=== PATIENT | male | born 1960 | race Caucasian/White ===

== ENCOUNTER 2019-03-23 16:22 | Inpatient (IN) | payer OTHER ==
[~2019-03-23] VITALS: Ht 162.6 cm; Wt 93.4 kg
[2019-03-23] MEDS ORDERED: RA M1SUB SL (16:45)
[2019-03-23 17:28] LABS: HEMATOCRIT 46.7 % (42.0-52.0); HEMOGLOBIN 15.5 g/dl (13.5-17.5); MEAN CORPUSCULAR HGB CONC 33.2 g/dl (32.0-36.5); MEAN CORPUSCULAR VOLUME 90.3 fl (80.0-96.0); PLATELET COUNT, AUTOMATED 302 10^3/uL (150-450); RED BLOOD COUNT 5.17 10^6/uL (4.30-6.10); WHITE BLOOD COUNT 9.9 10^3/uL (4.0-10.0)
[2019-03-23 17:49] LABS: AMPHETAMINES LEVEL URINE NEGATIVE (NEGATIVE); BARBITURATES URINE NEGATIVE (NEGATIVE); BENZODIAZEPINES URINE NEGATIVE (NEGATIVE); CANNABINOIDS URINE NEGATIVE (NEGATIVE); COCAINE METABOLITE URINE NEGATIVE (NEGATIVE); METHADONE URINE NEGATIVE (NEGATIVE); OPIATES URINE NEGATIVE (NEGATIVE); PHENCYCLIDINE URINE NEGATIVE (NEGATIVE)
[2019-03-23 18:05] LABS: ACETAMINOPHEN LEVEL < 2.0 UG/ML (10.0-30.0); ALBUMIN 3.9 GM/DL (3.2-5.2); ALT/SGPT 25 U/L (12-78); BILIRUBIN,DIRECT 0.2 MG/DL (0.0-0.2); BILIRUBIN,TOTAL 0.5 MG/DL (0.2-1.0); BLOOD UREA NITROGEN 18 MG/DL (7-18); CALCIUM LEVEL 9.2 MG/DL (8.5-10.1); CARBON DIOXIDE LEVEL 26 MEQ/L (21-32); CHLORIDE LEVEL 107 MEQ/L (98-107); CREATININE FOR GFR 1.11 MG/DL (0.70-1.30); ETHYL ALCOHOL (ETHANOL) < 0.003 % (0.000-0.010); GLOMERULAR FILTRATION RATE > 60.0 (>56); GLUCOSE, FASTING 106 MG/DL (70-100); POTASSIUM SERUM 4.1 MEQ/L (3.5-5.1); SALICYLATE LEVEL < 1.7 MG/DL (5.0-30.0); SODIUM LEVEL 143 MEQ/L (136-145); TOTAL PROTEIN 7.4 GM/DL (6.4-8.2)
[2019-03-23] MEDS ORDERED: chlorproMAZINE 25 MG TAB (Q0161) PO ONE (22:15)
[2019-03-24] MEDS ORDERED: MELA5TAB29 SL (00:32)
[2019-03-24] MEDS ORDERED: DIPH50CA PO (00:32)
[2019-03-24] MEDS ORDERED: ACETAMINOPHEN TAB 650MG DOSE (2X325MG) PO PRN (13:45)
[2019-03-24] MEDS ORDERED: MAALOX 30 ML SUSP *UDC PO PRN (13:45)
[2019-03-24] MEDS ORDERED: MOM 30ML SUSPENSION UDC PO PRN (13:45)
[2019-03-24 15:11] VITALS: BP 150/80
[2019-03-24] MEDS: OLANZapine ORAL DISINTEGRATING TAB 5MG PO PRN (21:03)
[2019-03-25 06:21] VITALS: BP 144/78
--- NOTE | 2019-03-25 10:18 | MHHPEPDOC ---
General Date Of Admission: Mar 24, 2019 Legal Status: 9.39 Chief Complaint "I've been so stressed lately by the feeling people are always watching me." History of Present Illness HISTORY OF THE PRESENT ILLNESS: Patient is a 58 -year-old , male, with no previous psych history who was brought to ED by police under 9.41 after per police, they were by [facility] that pt had been calling hospital and making suicidal threats of walking into traffic or hitting himself in the head with a bat and was making paranoid statements. Once in [facility] ED pt stated he had been having suicidal thoughts for the past 3-4 days and that he didn't want to be alive anymore per ED. Per ED, pt endorsed increased anxiety and depression over the past 3months after people started accusing him of stealing at work and feeling like the managers at [facility] [employer] were watching him. Pt stated in the ED that he hadn't stolen anything and that no one had actually accused him but feels like people are saying things behind his back. Pt also reported that his father last year and that after he passed strange things had been happening in the home such as the TV turning on by itself. Pt also endorse occasional AH in the ED with the most recent time occurring 3wks ago when he heard people talking in another room in his home but no one else was at home at the time. Psychiatric Review of Systems Depression (2 or more weeks): depressed mood, difficulty concentrating, suicidal thoughts Reba (4 or more days of): denies Psychosis: auditory hallucination, delusions, paranoia PTSD: denies Anxiety: situational anxiety, stressor related anxiety Anxiety/ 6 months or more of: restlessness, keyed up, difficulty concentrating Past Psychiatric History Previous Psychiatric Diagnosis: denies Previous Psychiatric Admissions: denies Suicide Attempts: denies Psychiatric Follow-up: denies Psychiatric medications: melatonin 5mg qhs, benadryl 50mg qhs prn Past Medical History Medical Problems asthma Head Injury: No Seizures: No Hospitalizations: No Surgeries: No Family Medical/Psychiatric HX Medical Problems noncontributory Psychiatric Disorders: Yes (brother - anxiety, depression, paranoia) Addiction: No Suicide Attemps/Completions: No Addiction History denies, other (utox negative) Social History Childhood: born and raised in [place], [place]. 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 Social Support: family Legal: denies Marital: single Mental Status Examination General Appearance: well groomed, ds/not appear stated age (older), hospital s cubs/clothing Build: overweight Demeanor: average, other (pleasant) Eye Contact: poor Activity: slowed Behavior: cooperative Speech: clear, spontaneous, low in volume Mood: depressed, anxious Mood "overwhelmed by the stress" Affect: constricted, flat, congruent, anxious Thought Process: logical/linear, depressed, slow, intact Thought Content (Delusions): none reported, denies SI, HI, AVH, paranoia (people watching him and talking about him, accusing him of things (steeling)) Thought Content (Other): preoccupied, obsessional, ideas of reference, internal-stimuli, appears paranoid Thought Content (Aggressive): none reported Perception (Hallucinations): auditory Perception (Other): none reported Cognition (Impairment of): none reported Cognition(Intelligence Est.): average Oriented: Awake, Alert, Oriented times three Insight: poor Judgment: Poor Psychosis: Psychotic Perceptions Diagnoses Depressive d/o vs. Anxiety d/o unspecified with psychotic symptoms R/O MDD with psychotic features R/O Avoidant Personality D/O A-FIB/CHADSVASC A-FIB History Current/History of A-Fib/PAF?: No Assessment Pt seen and states he's been having a lot of anxiety and paranoia and having thoughts of harming himself, wanting to run in front of cars, 3-4 days ago. States he's been reading the bible and praying this morning which has been helpful. States he feels like he's always being watch even by his family and at work, or even waking down the street like "everyone's staring at me and I start constantly looking around and my stress builds up and my anxiety get's so overwhelming." Endorse symptoms of panic attacks and "wanting to crawl up like a ball until it goes away." Endorses insomnia secondary to anxiety. Discussed medication for depression and paranoia and is agreeable to starting celexa for mood and risperidone for paranoia after risks/benefits discussed. Currently denies SI/HI, hallucinations, delusions. Feels safe here. Initial Treatment Plan 1. Patient was admitted on a 9.39 status. 2. Complete history was obtained. 3. With patients permission, family will be contacted and database will be expanded. 4. Patients medication regimen will be reviewed and changed accordingly. 5. Patient will be provided with protected environment. 6. Patient will be treated with individual, group, and milieu therapies. 7. Patient will receive supportive psych-education. 8. Discharge planning will commence immediately. 9. Outpatient follow-up treatment will be strongly recommended. 10. The initial treatment plan will focus initially on: * Depression. * Risk for suicide. 11. celexa 10mg qhs, risperidone 0.5mg qhs, vistaril 25mg q6hr prn anxiety ESTIMATED LENGTH OF STAY: 7-10 DAYS. TIME SPENT COUNSELING AND COORDINATING INITIAL CARE: 60 minutes. Vital Signs Vital Signs Date Time Temp Pulse Resp B/P (MAP) Pulse Ox O2 Delivery O2 Flow Rate FiO2 03/25/19 08:16 Room Air 03/25/19 06:21 98.9 69 16 144/78 (100) 03/24/19 15:05 99 Medications Scheduled PRN Diphenhydramine HCl (Diphenhydramine HCl) 50 Mg Capsule, 50 MG PO QHS PRN for SLEEP, (Reported) Melatonin (Melatonin) 5 Mg Tab.subl, 5 MG SL QHS PRN for SLEEP, (Reported) Allergies Coded Allergies: No Known Allergies (Unverified , 03/23/19) IVONE MAI DO Mar 25, 2019 10:18
[2019-03-25 17:35] VITALS: BP 160/81
[2019-03-25] MEDS: OLANZapine ORAL DISINTEGRATING TAB 5MG PO PRN (20:27)
[2019-03-25] MEDS: traZODone 50 MG TAB PO PRN (20:52)
[2019-03-26 06:04] VITALS: BP 140/82
[2019-03-26] MEDS: OLANZapine ORAL DISINTEGRATING TAB 5MG PO PRN (08:21)
--- NOTE | 2019-03-26 09:05 | MHIPNPDOC ---
[facility] Progress Note Progress Note DATE OF SERVICE: 03/26/19 HISTORY: Patient is a 58 -year-old , male, with no previous psych history who was brought to ED by police under 9.41 after per police, they were by [facility] that pt had been calling hospital and making suicidal threats of walking into traffic or hitting himself in the head with a bat and was making paranoid statements. Once in [facility] ED pt stated he had been having suicidal thoughts for the past 3-4 days and that he didn't want to be alive anymore per ED. Per ED, pt endorsed increased anxiety and depression over the past 3months after people started accusing him of stealing at work and feeling like the managers at [facility] were watching him. Pt stated in the ED that he hadn't stolen anything and that no one had actually accused him but feels like people are saying things behind his back. Pt also reported that his father last year and that after he passed strange things had been happening in the home such as the TV turning on by itself. Pt also endorse occasional AH in the ED with the most recent time occurring 3wks ago when he heard people talking in another room in his home but no one else was at home at the time. Pt seen and states he's been having a lot of anxiety and paranoia and having thoughts of harming himself, wanting to run in front of cars, 3-4 days ago. States he's been reading the bible and praying this morning which has been helpful. States he feels like he's always being watch even by his family and at work, or even waking down the street like "everyone's staring at me and I start constantly looking around and my stress builds up and my anxiety get's so overwhelming." Endorse symptoms of panic attacks and "wanting to crawl up like a ball until it goes away." Endorses insomnia secondary to anxiety. Discussed medication for depression and paranoia and is agreeable to starting celexa for mood and risperidone for paranoia after risks/benefits discussed. Currently denies SI/HI, hallucinations, delusions. Feels safe here. VITAL SIGNS: See below. NEW TEST RESULTS:See below. CURRENT MEDICATIONS: See below. MENTAL STATUS EXAMINATION: General Appearance: well groomed, ds/not appear stated age (older), hospital scrubs/clothing Build: overweight Demeanor: average, other (pleasant) Eye Contact: poor Activity: slowed Behavior: cooperative Speech: clear, spontaneous, low in volume Mood: depressed, very anxious Mood "not great... I fear I'll be by the end of today" Affect: constricted, flat, congruent, very anxious Thought Process: disorganized, depressed, slow, intact Thought Content (Delusions): none reported, denies SI, HI, AVH, paranoia (people watching him and talking about him, accusing him of things (steeling), fear of not being alive by the end of the day but denies he knows what will happen to him, denies he'll do anything to harm himself) Thought Content (Other): preoccupied, obsessional, ideas of reference, internal-stimuli, appears paranoid Thought Content (Aggressive): none reported Perception (Hallucinations): auditory Perception (Other): none reported Cognition (Impairment of): none reported Cognition(Intelligence Est.): average Oriented: Awake, Alert, Oriented times three Insight: poor Judgment: Poor Psychosis: Psychotic Perceptions DIAGNOSES: Depressive d/o vs. Anxiety d/o unspecified with psychotic symptoms R/O MDD with psychotic features R/O Avoidant Personality D/O ASSESSMENT:Pt seen and states he's "not feeling great" and fears "I won't be alive by the end of this day", denies he's going to harm himself, "just go peaceful and not struggle" due to overwhelming anxiety. States anxiety is regarding fear of not being alive by the end of today but denies he know's what going to happen to him. "There's no malice or intention toward anyone here." He seems very anxious, paranoid, and disorganized, having a very hard time focusing on anything but his thoughts, fears, paranoia. States he slept well last night. Feels he is tolerating his medications and and that they help for a little while then wear off and severe anxiety returns. He is attending groups and finding them helpful. He denies SI/HI. MANAGEMENT PLAN: continue plan, change risperidone 1mg bid. celexa 10mg qhs risperidone 0.5mg qhs vistaril 25mg q6hr prn anxiety TIME SPENT: 30 minutes. Vital Signs Vital Signs Date Time Temp Pulse Resp B/P (MAP) Pulse Ox O2 Delivery O2 Flow Rate FiO2 03/26/19 06:04 98.4 65 16 140/82 (101) Room Air 03/24/19 15:05 99 Current Medications Current Medications Medications (Trade) Dose Ordered Sig/Liu Route PRN Reason Start Time Stop Time Status Last Admin Dose Admin Acetaminophen (Tylenol Tab) 650 mg Q6HP PRN PO HEADACHE or DISCOMFORT 03/24/19 13:45 Al Hydrox/Mg Hydrox/Simethicone (Mylanta) 30 ml Q4HP PRN PO HEARTBURN/INDIGESTION 03/24/19 13:45 Home Med (Med Rec Complete!) ASDIRECTED XX 03/24/19 00:45 03/24/19 00:36 DC Magnesium Hydroxide (Milk Of Magnesia) 30 ml DAILYPRN PRN PO CONSTIPATION 03/24/19 13:45 Olanzapine (ZyPREXA ZYDIS) 10 mg Q4HP PRN PO ANXIETY/AGITATION 03/24/19 20:30 03/26/19 08:21 Trazodone HCl (Desyrel) 50 mg QHSP PRN PO INSOMNIA 03/24/19 13:45 03/25/19 20:52 Allergies Coded Allergies: No Known Allergies (Unverified , 03/23/19) IVONE MAI DO Mar 26, 2019 9:05 am
[2019-03-26] MEDS ORDERED: risperiDONE 1 MG TAB PO ONE (10:00)
[2019-03-26 18:12] VITALS: BP 185/88
[2019-03-26] MEDS: risperiDONE 1 MG TAB PO SCH (20:25)
[2019-03-26] MEDS: CitaloPRAM (CeleXA) 10 MG TABLET PO SCH (20:25)
[2019-03-26] MEDS: traZODone 50 MG TAB PO PRN (20:46)
[2019-03-27 06:09] VITALS: BP 142/76
--- NOTE | 2019-03-27 09:34 | MHIPNPDOC ---
[facility] Progress Note Progress Note DATE OF SERVICE: 03/27/19 HISTORY:Patient is a 58 -year-old , male, with no previous psych history who was brought to ED by police under 9.41 after per police, they were by [facility] that pt had been calling hospital and making suicidal threats of walking into traffic or hitting himself in the head with a bat and was making paranoid statements. Once in [facility] ED pt stated he had been having suicidal thoughts for the past 3-4 days and that he didn't want to be alive anymore per ED. Per ED, pt endorsed increased anxiety and depression over the past 3months after people started accusing him of stealing at work and feeling like the managers at [facility] were watching him. Pt stated in the ED that he hadn't stolen anything and that no one had actually accused him but feels like people are saying things behind his back. Pt also reported that his father last year and that after he passed strange things had been happening in the home such as the TV turning on by itself. Pt also endorse occasional AH in the ED with the most recent time occurring 3wks ago when he heard people talking in another room in his home but no one else was at home at the time. Pt seen and states he's been having a lot of anxiety and paranoia and having thoughts of harming himself, wanting to run in front of cars, 3-4 days ago. States he's been reading the bible and praying this morning which has been helpful. States he feels like he's always being watch even by his family and at work, or even waking down the street like "everyone's staring at me and I start constantly looking around and my stress builds up and my anxiety get's so overwhelming." Endorse symptoms of panic attacks and "wanting to crawl up like a ball until it goes away." Endorses insomnia secondary to anxiety. Discussed medication for depression and paranoia and is agreeable to starting celexa for mood and risperidone for paranoia after risks/benefits discussed. Currently denies SI/HI, hallucinations, delusions. Feels safe here. VITAL SIGNS: See below. NEW TEST RESULTS:See below. CURRENT MEDICATIONS: See below. MENTAL STATUS EXAMINATION: General Appearance: well groomed, ds/not appear stated age (older), hospital scrubs/clothing Build: overweight Demeanor: average, other (pleasant) Eye Contact: poor Activity: slowed Behavior: cooperative Speech: clear, spontaneous, low in volume Mood: depressed, anxious Mood "better" Affect: constricted, flat, congruent, very anxious Thought Process: disorganized, depressed, slow, intact Thought Content (Delusions): none reported, denies SI, HI, AVH, endorses paranoia (people watching him and talking about him, accusing him of things (steeling), fear of not being alive by the end of the day but denies he knows what will happen to him, denies he'll do anything to harm himself) Thought Content (Other): preoccupied, obsessional, ideas of reference, improving internal-stimuli, appears paranoid Thought Content (Aggressive): none reported Perception (Hallucinations): improving auditory Perception (Other): none reported Cognition (Impairment of): none reported Cognition(Intelligence Est.): average Oriented: Awake, Alert, Oriented times three Insight: poor Judgment: Poor Psychosis: Psychotic Perceptions DIAGNOSES: Depressive d/o vs. Anxiety d/o unspecified with psychotic symptoms R/O MDD with psychotic features R/O Avoidant Personality D/O ASSESSMENT:Pt seen and states he's feels "better" as ther medication increase in risperidone is helpful. Countinues to endorse paranoia and anxiety but less than yesterday. Admits he does yet feel quite safe here due to anxiety/fear something bad may happen to him but doesn't know what. Denies he believes he'll be by the end of today like yesterday. He seems less anxious, paranoid, and disorganized today and his focus/concentration is improved. States he slept ok last night but was awoken by roommate walking in and out of room. Feels he is tolerating his medications and and that they are starting to be helpful and working for longer periods of time. He is attending groups and finding them helpful, plans to attend 3 today as attended 2 yesterday. He denies SI/HI. MANAGEMENT PLAN: continue plan celexa 10mg qhs risperidone 1mg bid vistaril 25mg q6hr prn anxiety TIME SPENT: 30 minutes. Vital Signs Vital Signs Date Time Temp Pulse Resp B/P (MAP) Pulse Ox O2 Delivery O2 Flow Rate FiO2 03/27/19 06:09 97.4 60 16 142/76 (98) 03/26/19 06:04 Room Air 03/24/19 15:05 99 Current Medications Current Medications Medications (Trade) Dose Ordered Sig/Liu Route PRN Reason Start Time Stop Time Status Last Admin Dose Admin Acetaminophen (Tylenol Tab) 650 mg Q6HP PRN PO HEADACHE or DISCOMFORT 03/24/19 13:45 Al Hydrox/Mg Hydrox/Simethicone (Mylanta) 30 ml Q4HP PRN PO HEARTBURN/INDIGESTION 03/24/19 13:45 Citalopram Hydrobromide (CeleXA) 10 mg QHS PO 03/26/19 21:00 03/26/19 20:25 Home Med (Med Rec Complete!) ASDIRECTED XX 03/24/19 00:45 03/24/19 00:36 DC Magnesium Hydroxide (Milk Of Magnesia) 30 ml DAILYPRN PRN PO CONSTIPATION 03/24/19 13:45 Olanzapine (ZyPREXA ZYDIS) 10 mg Q4HP PRN PO ANXIETY/AGITATION 03/24/19 20:30 03/26/19 08:21 Risperidone (RisperDAL) 1 mg BID PO 03/26/19 21:00 03/26/19 20:25 Trazodone HCl (Desyrel) 50 mg QHSP PRN PO INSOMNIA 03/24/19 13:45 03/26/19 20:46 Allergies Coded Allergies: No Known Allergies (Unverified , 03/23/19) IVONE MAI DO Mar 27, 2019 9:34 am
[2019-03-27] MEDS: risperiDONE 1 MG TAB PO SCH ×2 (09:35→20:26)
[2019-03-27 18:00] VITALS: BP 140/77
[2019-03-27] MEDS: CitaloPRAM (CeleXA) 10 MG TABLET PO SCH (20:25)
[2019-03-27] MEDS: traZODone 50 MG TAB PO PRN (20:27)
[2019-03-28 05:57] VITALS: BP 142/72
[2019-03-28] MEDS: risperiDONE 1 MG TAB PO SCH (09:15)
--- NOTE | 2019-03-28 10:35 | MHIPNPDOC ---
[facility] Progress Note Progress Note DATE OF SERVICE: 03/28/19 HISTORY: Patient is a 58 -year-old , male, with no previous psych history who was brought to ED by police under 9.41 after per police, they were by [facility] that pt had been calling hospital and making suicidal threats of walking into traffic or hitting himself in the head with a bat and was making paranoid statements. Once in [facility] ED pt stated he had been having suicidal thoughts for the past 3-4 days and that he didn't want to be alive anymore per ED. Per ED, pt endorsed increased anxiety and depression over the past 3months after people started accusing him of stealing at work and feeling like the managers at [facility] were watching him. Pt stated in the ED that he hadn't stolen anything and that no one had actually accused him but feels like people are saying things behind his back. Pt also reported that his father last year and that after he passed strange things had been happening in the home such as the TV turning on by itself. Pt also endorse occasional AH in the ED with the most recent time occurring 3wks ago when he heard people talking in another room in his home but no one else was at home at the time. Pt seen and states he's been having a lot of anxiety and paranoia and having thoughts of harming himself, wanting to run in front of cars, 3-4 days ago. States he's been reading the bible and praying this morning which has been helpful. States he feels like he's always being watch even by his family and at work, or even waking down the street like "everyone's staring at me and I start constantly looking around and my stress builds up and my anxiety get's so overwhelming." Endorse symptoms of panic attacks and "wanting to crawl up like a ball until it goes away." Endorses insomnia secondary to anxiety. Discussed medication for depression and paranoia and is agreeable to starting celexa for mood and risperidone for paranoia after risks/benefits discussed. Currently denies SI/HI, hallucinations, delusions. Feels safe here. VITAL SIGNS: See below. NEW TEST RESULTS:See below. CURRENT MEDICATIONS: See below. MENTAL STATUS EXAMINATION: General Appearance: well groomed, ds/not appear stated age (older), hospital scrubs/clothing Build: overweight Demeanor: average, other (pleasant) Eye Contact: poor Activity: slowed Behavior: cooperative Speech: clear, spontaneous, low in volume Mood: depressed, anxious Mood "better" Affect: constricted, flat, congruent, very anxious Thought Process: disorganized, depressed, slow, intact Thought Content (Delusions): none reported, denies SI, HI, AVH, endorses paranoia (people watching him and talking about him, accusing him of things (steeling), fear of not being alive by the end of the day but denies he knows what will happen to him, denies he'll do anything to harm himself) Thought Content (Other): preoccupied, obsessional, ideas of reference, improving internal-stimuli, appears paranoid Thought Content (Aggressive): none reported Perception (Hallucinations): improving auditory Perception (Other): none reported Cognition (Impairment of): none reported Cognition(Intelligence Est.): average Oriented: Awake, Alert, Oriented times three Insight: poor Judgment: Poor Psychosis: Psychotic Perceptions DIAGNOSES: Depressive d/o vs. Anxiety d/o unspecified with psychotic symptoms R/O MDD with psychotic features R/O Avoidant Personality D/O ASSESSMENT:Pt seen and states he's feels "a bit better" although still struggles with anxiety, fear, paranoia that was increased last night due to his roommate walking in and out of their room repeatedly preventing the pt from sleeping but did improve when his room was changed to help him sleep better. States he felt unsafe due to his roommate actions last night but that it's better now that he's in a new room. States that risperidone is helping but due to continued moderate fear/anxiety/paranoia will increase nightly dose to 2mg which pt is agreeable to. Continues to endorse depressed mood mostly due to his anxiety and paranoia. Denies SI/HI. Admist that he is a loner as people make him anxious b/c he fears they will justice court judge him negatively even though he would like friends. Reviewed with pt what avoidant personality d/o is and that is is something that improves with therapy for him to realize people are more often thinking of themselves rather than him and what he says or does. Feels he is tolerating his medications and and that they are starting to be helpful and working for longer periods of time. He is attending groups and finding them helpful, plans to attend as many as he can today. He denies SI/HI. MANAGEMENT PLAN: continue plan, increase nightly risperidone celexa 10mg qhs risperidone 1mg qam and 2mg qhs vistaril 25mg q6hr prn anxiety TIME SPENT: 30 minutes. Vital Signs Vital Signs Date Time Temp Pulse Resp B/P (MAP) Pulse Ox O2 Delivery O2 Flow Rate FiO2 03/28/19 05:57 97.4 60 16 142/72 (95) 03/26/19 06:04 Room Air 03/24/19 15:05 99 Current Medications Current Medications Medications (Trade) Dose Ordered Sig/Liu Route PRN Reason Start Time Stop Time Status Last Admin Dose Admin Acetaminophen (Tylenol Tab) 650 mg Q6HP PRN PO HEADACHE or DISCOMFORT 03/24/19 13:45 Al Hydrox/Mg Hydrox/Simethicone (Mylanta) 30 ml Q4HP PRN PO HEARTBURN/INDIGESTION 03/24/19 13:45 Citalopram Hydrobromide (CeleXA) 10 mg QHS PO 03/26/19 21:00 03/27/19 20:25 Home Med (Med Rec Complete!) ASDIRECTED XX 03/24/19 00:45 03/24/19 00:36 DC Magnesium Hydroxide (Milk Of Magnesia) 30 ml DAILYPRN PRN PO CONSTIPATION 03/24/19 13:45 Olanzapine (ZyPREXA ZYDIS) 10 mg Q4HP PRN PO ANXIETY/AGITATION 03/24/19 20:30 03/26/19 08:21 Risperidone (RisperDAL) 1 mg BID PO 03/26/19 21:00 03/28/19 09:15 Trazodone HCl (Desyrel) 50 mg QHSP PRN PO INSOMNIA 03/24/19 13:45 03/27/19 20:27 Allergies Coded Allergies: No Known Allergies (Unverified , 03/23/19) IVONE MAI DO Mar 28, 2019 10:34 am
[2019-03-28 16:14] VITALS: BP 160/70
[2019-03-28] MEDS: risperiDONE 2 MG TAB PO SCH (20:38)
[2019-03-28] MEDS: traZODone 50 MG TAB PO PRN (20:38)
[2019-03-28] MEDS: CitaloPRAM (CeleXA) 10 MG TABLET PO SCH (20:38)
[2019-03-29 06:24] VITALS: BP 154/75
[2019-03-29] MEDS: risperiDONE 1 MG TAB PO SCH (09:33)
[2019-03-29 15:37] VITALS: BP 146/76
[2019-03-29] MEDS: risperiDONE 2 MG TAB PO SCH (20:09)
[2019-03-29] MEDS: traZODone 50 MG TAB PO PRN (20:09)
[2019-03-29] MEDS: CitaloPRAM (CeleXA) 10 MG TABLET PO SCH (20:09)
[2019-03-30 06:37] VITALS: BP 147/66
[2019-03-30] MEDS: risperiDONE 1 MG TAB PO SCH (08:16)
[2019-03-30 15:43] VITALS: BP 136/67
[2019-03-30] MEDS: traZODone 50 MG TAB PO PRN (20:16)
[2019-03-30] MEDS: CitaloPRAM (CeleXA) 10 MG TABLET PO SCH (20:16)
[2019-03-30] MEDS: risperiDONE 2 MG TAB PO SCH (20:16)
[2019-03-31 06:51] VITALS: BP 134/79
[2019-03-31] MEDS: risperiDONE 1 MG TAB PO SCH (08:46)
[2019-03-31 16:17] VITALS: BP 138/80
[2019-03-31] MEDS: traZODone 50 MG TAB PO PRN (20:10)
[2019-03-31] MEDS: CitaloPRAM (CeleXA) 10 MG TABLET PO SCH (20:10)
[2019-03-31] MEDS: risperiDONE 2 MG TAB PO SCH (20:10)
[2019-04-01 06:37] VITALS: BP 139/78
[2019-04-01] MEDS: risperiDONE 1 MG TAB PO SCH (08:46)
--- NOTE | 2019-04-01 10:22 | MHIPNPDOC ---
[facility] Progress Note Progress Note DATE OF SERVICE: 04/01/19 HISTORY: Patient is a 58 -year-old , male, with no previous psych history who was brought to ED by police under 9.41 after per police, they were by [facility] that pt had been calling hospital and making suicidal threats of walking into traffic or hitting himself in the head with a bat and was making paranoid statements. Once in [facility] ED pt stated he had been having suicidal thoughts for the past 3-4 days and that he didn't want to be alive anymore per ED. Per ED, pt endorsed increased anxiety and depression over the past 3months after people started accusing him of stealing at work and feeling like the managers at [facility] were watching him. Pt stated in the ED that he hadn't stolen anything and that no one had actually accused him but feels like people are saying things behind his back. Pt also reported that his father last year and that after he passed strange things had been happening in the home such as the TV turning on by itself. Pt also endorse occasional AH in the ED with the most recent time occurring 3wks ago when he heard people talking in another room in his home but no one else was at home at the time. Pt seen and states he's been having a lot of anxiety and paranoia and having thoughts of harming himself, wanting to run in front of cars, 3-4 days ago. States he's been reading the bible and praying this morning which has been helpful. States he feels like he's always being watch even by his family and at work, or even waking down the street like "everyone's staring at me and I start constantly looking around and my stress builds up and my anxiety get's so overwhelming." Endorse symptoms of panic attacks and "wanting to crawl up like a ball until it goes away." Endorses insomnia secondary to anxiety. Discussed medication for depression and paranoia and is agreeable to starting celexa for mood and risperidone for paranoia after risks/benefits discussed. Currently denies SI/HI, hallucinations, delusions. Feels safe here. VITAL SIGNS: See below. NEW TEST RESULTS:See below. CURRENT MEDICATIONS: See below. MENTAL STATUS EXAMINATION: General Appearance: well groomed, ds/not appear stated age (older), hospital scrubs/clothing Build: overweight Demeanor: average, other (pleasant) Eye Contact: poor Activity: slowed Behavior: cooperative Speech: clear, spontaneous, low in volume Mood: less depressed, anxious Mood "better" Affect: less constricted, flat, congruent, very anxious Thought Process: disorganized, depressed, slow, intact Thought Content (Delusions): none reported, denies SI, HI, AVH, less paranoia (people watching him and talking about him) Thought Content (Other): less preoccupied, obsessional, ideas of reference, improving internal-stimuli, appears paranoid Thought Content (Aggressive): none reported Perception (Hallucinations): improving auditory Perception (Other): none reported Cognition (Impairment of): none reported Cognition(Intelligence Est.): average Oriented: Awake, Alert, Oriented times three Insight: poor Judgment: fair Psychosis: Psychotic Perceptions DIAGNOSES: Depressive d/o vs. Anxiety d/o unspecified with psychotic symptoms R/O MDD with psychotic features R/O Avoidant Personality D/O ASSESSMENT:Pt seen and states he's feels "better" as he's reading the bible and states his anxiety improving, finds certain Psalms particularly beneficial. States his paranoia less intense. Agrees to increasing nightly risperidone for treatment of paranoia as remarks it is still present and does have difficulty thinking logically regarding it, continues to have periods of anxiety due to it. States that risperidone is beneficial and he's tolerating it well. States his depressed mood is improving due to have less anxiety and paranoid. Denies SI/HI. 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 Reviewed with pt what avoidant personality d/o is and that is is something that improves with therapy for him to realize people are more often thinking of themselves rather than him and what he says or does. Feels he is tolerating his medications and and that they are starting to be helpful and working for longer periods of time. He is attending groups and finding them helpful. He denies SI/HI. MANAGEMENT PLAN: continue plan, increase nightly risperidone celexa 10mg qhs risperidone 1mg qam and 3mg qhs vistaril 25mg q6hr prn anxiety TIME SPENT: 30 minutes. Vital Signs Vital Signs Date Time Temp Pulse Resp B/P (MAP) Pulse Ox O2 Delivery O2 Flow Rate FiO2 04/01/19 06:37 98.2 86 14 139/78 (98) Room Air Current Medications Current Medications Medications (Trade) Dose Ordered Sig/Liu Route PRN Reason Start Time Stop Time Status Last Admin Dose Admin Acetaminophen (Tylenol Tab) 650 mg Q6HP PRN PO HEADACHE or DISCOMFORT 03/24/19 13:45 Al Hydrox/Mg Hydrox/Simethicone (Mylanta) 30 ml Q4HP PRN PO HEARTBURN/INDIGESTION 03/24/19 13:45 Citalopram Hydrobromide (CeleXA) 10 mg QHS PO 03/26/19 21:00 03/31/19 20:10 Home Med (Med Rec Complete!) ASDIRECTED XX 03/24/19 00:45 03/24/19 00:36 DC Magnesium Hydroxide (Milk Of Magnesia) 30 ml DAILYPRN PRN PO CONSTIPATION 03/24/19 13:45 Olanzapine (ZyPREXA ZYDIS) 10 mg Q4HP PRN PO ANXIETY/AGITATION 03/24/19 20:30 03/26/19 08:21 Risperidone (RisperDAL) 1 mg BID PO 03/26/19 21:00 03/28/19 10:33 DC 03/28/19 09:15 Risperidone (RisperDAL) 1 mg DAILY PO 03/29/19 09:00 04/01/19 08:46 Risperidone (RisperDAL) 2 mg QHS PO 03/28/19 21:00 03/31/19 20:10 Trazodone HCl (Desyrel) 50 mg QHSP PRN PO INSOMNIA 03/24/19 13:45 03/31/19 20:10 Allergies Coded Allergies: No Known Allergies (Unverified , 03/23/19) IVONE MAI DO Apr 01, 2019 10:22 am
[2019-04-01 16:31] VITALS: BP 130/68
[2019-04-01] MEDS: risperiDONE 2 MG TAB PO SCH (20:46)
[2019-04-01] MEDS: traZODone 50 MG TAB PO PRN (20:46)
[2019-04-01] MEDS: CitaloPRAM (CeleXA) 10 MG TABLET PO SCH (20:46)
[2019-04-02 06:44] VITALS: BP 135/78
[2019-04-02] MEDS: risperiDONE 1 MG TAB PO SCH (08:50)
--- NOTE | 2019-04-02 08:53 | MHIPNPDOC ---
[facility] Progress Note Progress Note DATE OF SERVICE: 04/02/19 HISTORY: Patient is a 58 -year-old , male, with no previous psych history who was brought to ED by police under 9.41 after per police, they were by [facility] that pt had been calling hospital and making suicidal threats of walking into traffic or hitting himself in the head with a bat and was making paranoid statements. Once in [facility] ED pt stated he had been having suicidal thoughts for the past 3-4 days and that he didn't want to be alive anymore per ED. Per ED, pt endorsed increased anxiety and depression over the past 3months after people started accusing him of stealing at work and feeling like the managers at [facility] were watching him. Pt stated in the ED that he hadn't stolen anything and that no one had actually accused him but feels like people are saying things behind his back. Pt also reported that his father last year and that after he passed strange things had been happening in the home such as the TV turning on by itself. Pt also endorse occasional AH in the ED with the most recent time occurring 3wks ago when he heard people talking in another room in his home but no one else was at home at the time. Pt seen and states he's been having a lot of anxiety and paranoia and having thoughts of harming himself, wanting to run in front of cars, 3-4 days ago. States he's been reading the bible and praying this morning which has been helpful. States he feels like he's always being watch even by his family and at work, or even waking down the street like "everyone's staring at me and I start constantly looking around and my stress builds up and my anxiety get's so overwhelming." Endorse symptoms of panic attacks and "wanting to crawl up like a ball until it goes away." Endorses insomnia secondary to anxiety. Discussed medication for depression and paranoia and is agreeable to starting celexa for mood and risperidone for paranoia after risks/benefits discussed. Currently denies SI/HI, hallucinations, delusions. Feels safe here. VITAL SIGNS: See below. NEW TEST RESULTS:See below. CURRENT MEDICATIONS: See below. MENTAL STATUS EXAMINATION: General Appearance: well groomed, ds/not appear stated age (older), hospital scrubs/clothing Build: overweight Demeanor: average, other (pleasant) Eye Contact: poor Activity: more average Behavior: cooperative Speech: clear, spontaneous, low in volume Mood: less depressed, less anxious Mood "alright" Affect: less constricted, congruent, less anxious Thought Process: linear, logical, less depressed, intact Thought Content (Delusions): none reported, denies SI, HI, AVH, less paranoia (people watching him and talking about him) Thought Content (Other): less preoccupied, less obsessional, denies internal- stimuli, less paranoia Thought Content (Aggressive): none reported Perception (Hallucinations): none reported Perception (Other): none reported Cognition (Impairment of): none reported Cognition(Intelligence Est.): average Oriented: Awake, Alert, Oriented times three Insight: fair Judgment: fair Psychosis: Psychotic Perceptions DIAGNOSES: Depressive d/o vs. Anxiety d/o unspecified with psychotic symptoms R/O MDD with psychotic features R/O Avoidant Personality D/O ASSESSMENT:Pt seen and states he's feels "alright" as his anxiety and paranoia are improved with the increase in risperidone last night. Continues to read the bible and as it makes him feel calmer and he finds certain Psalms particularly beneficial. States his depressed mood is improving due to have less anxiety and paranoia. Denies SI/HI. Improved fears people bag grader him negatively. Reviewed with pt what avoidant personality d/o is and that is is something that improves with therapy for him to realize people are more often thinking of themselves rather than him and what he says or does. Feels he is tolerating his medications and and that they are starting to be helpful and working for longer periods of time. He is attending groups and finding them helpful. He denies SI/HI. MANAGEMENT PLAN: continue plan, increase nightly risperidone celexa 10mg qhs risperidone 1mg qam and 3mg qhs vistaril 25mg q6hr prn anxiety TIME SPENT: 30 minutes. Vital Signs Vital Signs Date Time Temp Pulse Resp B/P (MAP) Pulse Ox O2 Delivery O2 Flow Rate FiO2 04/02/19 06:44 97.8 84 14 135/78 (97) Room Air Current Medications Current Medications Medications (Trade) Dose Ordered Sig/Liu Route PRN Reason Start Time Stop Time Status Last Admin Dose Admin Acetaminophen (Tylenol Tab) 650 mg Q6HP PRN PO HEADACHE or DISCOMFORT 03/24/19 13:45 Al Hydrox/Mg Hydrox/Simethicone (Mylanta) 30 ml Q4HP PRN PO HEARTBURN/INDIGESTION 03/24/19 13:45 Citalopram Hydrobromide (CeleXA) 10 mg QHS PO 03/26/19 21:00 04/01/19 20:46 Home Med (Med Rec Complete!) ASDIRECTED XX 03/24/19 00:45 03/24/19 00:36 DC Magnesium Hydroxide (Milk Of Magnesia) 30 ml DAILYPRN PRN PO CONSTIPATION 03/24/19 13:45 Olanzapine (ZyPREXA ZYDIS) 10 mg Q4HP PRN PO ANXIETY/AGITATION 03/24/19 20:30 03/26/19 08:21 Risperidone (RisperDAL) 1 mg BID PO 03/26/19 21:00 03/28/19 10:33 DC 03/28/19 09:15 Risperidone (RisperDAL) 1 mg DAILY PO 03/29/19 09:00 04/01/19 08:46 Risperidone (RisperDAL) 2 mg QHS PO 03/28/19 21:00 04/01/19 20:46 Trazodone HCl (Desyrel) 50 mg QHSP PRN PO INSOMNIA 03/24/19 13:45 04/01/19 20:46 Allergies Coded Allergies: No Known Allergies (Unverified , 03/23/19) IVONE MAI DO Apr 02, 2019 8:53 am
[2019-04-02 16:19] VITALS: BP 128/70
[2019-04-02] MEDS: traZODone 50 MG TAB PO PRN (20:18)
[2019-04-02] MEDS: CitaloPRAM (CeleXA) 10 MG TABLET PO SCH (20:18)
[2019-04-02] MEDS ORDERED: risperiDONE 3 MG TAB PO SCH (21:00)
[2019-04-03 06:32] VITALS: BP 148/70
[2019-04-03] MEDS: risperiDONE 1 MG TAB PO SCH (08:37)
[2019-04-03] MEDS ORDERED: VIST25CA PO (08:44)
[2019-04-03] MEDS ORDERED: RISP1TAB42 PO (08:44)
[2019-04-03] MEDS ORDERED: TRAZ-252 PO (08:44)
[2019-04-03] MEDS ORDERED: CELE10TA PO (08:44)
[2019-04-03] MEDS ORDERED: RISP3TAB20 PO (08:44)
--- NOTE | 2019-04-03 08:44 | MHDSPDOC ---
[facility] Discharge Summary Discharge Summary DATE OF ADMISSION: Mar 24, 2019 at 1:32 pm DATE OF DISCHARGE: Apr 03, 2019 DISCHARGE DIAGNOSES: Major Depressive D/O recurrent, severe with psychotic features R/O Avoidant Personality D/O REASON FOR ADMISSION: Patient is a 58 -year-old , male, with no previous psych history who was brought to ED by police under 9.41 after per police, they were by [facility] that pt had been calling hospital and making suicidal threats of walking into traffic or hitting himself in the head with a bat and was making paranoid statements. Once in [facility] ED pt stated he had been having suicidal thoughts for the past 3-4 days and that he didn't want to be alive anymore per ED. Per ED, pt endorsed increased anxiety and depression over the past 3months after people started accusing him of stealing at work and feeling like the managers at [facility] were watching him. Pt stated in the ED that he hadn't stolen anything and that no one had actually accused him but feels like people are saying things behind his back. Pt also reported that his father last year and that after he passed strange things had been happening in the home such as the TV turning on by itself. Pt also endorse occasional AH in the ED with the most recent time occurring 3wks ago when he heard people talking in another room in his home but no one else was at home at the time. Pt seen and states he's been having a lot of anxiety and paranoia and having thoughts of harming himself, wanting to run in front of cars, 3-4 days ago. States he's been reading the bible and praying this morning which has been helpful. States he feels like he's always being watch even by his family and at work, or even waking down the street like "everyone's staring at me and I start constantly looking around and my stress builds up and my anxiety get's so overwhelming." Endorse symptoms of panic attacks and "wanting to crawl up like a ball until it goes away." Endorses insomnia secondary to anxiety. Discussed medication for depression and paranoia and is agreeable to starting celexa for mood and risperidone for paranoia after risks/benefits discussed. Currently denies SI/HI, hallucinations, delusions. Feels safe here. CONSULTANTS INVOLVED: none TREATMENT AND PROGRESS ON THE UNIT : [facility], seen for psychiatric assessment and started on celexa 10mg daily for mood and risperidone increased to 1mg qam and 3mg qhs for paranoia. He was provided vistaril 25mg q6hr prn anxiety and trazodone 50mg qhs prn insomnia. Pt found his medications beneficial and tolerated them well. He attended groups daily during his stay. His symptoms or anxiety and paranoia improved with treatment. On day of discharge he denied depression, anxiety, insomnia, SI/HI, hallucinations, delusions, paranoia. He was discharged home with follow-up at [facility]. He felt safe for discharge. DISCHARGE ASSESSMENT: Pt seen and states he's feels "good" today and is looking forward to going home and seeing his mother who is supportive of him and is who he lives with. States his anxiety and paranoia are improved with risperidone. Continues to read the bible and as it makes him feel calmer and he finds certain Psalms particularly beneficial. Denies depressed mood his anxiety and paranoia are greatly improved with treatment. Denies SI/HI. 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 Feels he is tolerating his medications and is finding them beneficial. He is attending groups and finding them helpful. He denies depression, anxiety, insomnia, SI/HI, hallucinations, delusions, paranoia. Feels safe to go home today. MENTAL STATUS EXAMINATION ON DISCHARGE: General Appearance: well groomed, ds/not appear stated age (older), hospital scrubs/clothing Build: overweight Demeanor: average, other (pleasant) Eye Contact: poor Activity: average Behavior: cooperative Speech: clear, spontaneous, low in volume Mood: euthymic, full range Mood "good" Affect: appropriate to mood, congruent Thought Process: linear, logical, intact Thought Content (Delusions): none reported, denies SI, HI, AVH, denies paranoia Thought Content (Other): denies paranoia Thought Content (Aggressive): none reported Perception (Hallucinations): none reported Perception (Other): none reported Cognition (Impairment of): none reported Cognition(Intelligence Est.): average Oriented: Awake, Alert, Oriented times three Insight: good Judgment: good Psychosis: none reported MEDICATIONS ON DISCHARGE: celexa 10mg qhs risperidone 1mg qam and 3mg qhs vistaril 25mg tid prn anxiety trazodone 50mg qhs prn insomnia PLAN/FOLLOWUP ARRANGEMENTS: D/c home with follow-up at [facility]. The amount of time spent in the coordination of care for this patient was approximately 30 minutes. Vital Signs/I&Os Vital Signs Date Time Temp Pulse Resp B/P (MAP) Pulse Ox O2 Delivery O2 Flow Rate FiO2 04/03/19 06:32 98.0 74 14 148/70 (96) 04/02/19 06:44 Room Air Medications Scheduled PRN Diphenhydramine HCl (Diphenhydramine HCl) 50 Mg Capsule, 50 MG PO QHS PRN for SLEEP, (Reported) Melatonin (Melatonin) 5 Mg Tab.subl, 5 MG SL QHS PRN for SLEEP, (Reported) Allergies Coded Allergies: No Known Allergies (Unverified , 03/23/19) IVONE MAI DO Apr 03, 2019 8:44 am
== END 2019-04-03 12:00 | disposition home or self-care (01) | DRG 751 ==
LOC: M ED 16:22 → M ED INP 03-24 13:32 → M PSY 03-24 15:40
PROVIDERS: ADMIT Psychiatry & Neurology Psychiatry; ATTEND Psychiatry & Neurology Psychiatry
DX: F33.2 Major depressive disorder, recurrent severe without psychotic features (principal); F60.6 Avoidant personality disorder

== ENCOUNTER 2020-07-18 14:09 | Inpatient (IN) | payer OTHER ==
[~2020-07-18] VITALS: Ht 162.6 cm; Wt 94.1 kg
[~2020-07-18 14:09] MED LIST: CELE10TA PO; DIPH50CA PO; MELA5TAB29 SL; RA M1SUB SL; RISP1TAB42 PO; RISP3TAB20 PO; TRAZ-252 PO; VIST25CA PO
[2020-07-18 14:58] LABS: HEMATOCRIT 49.2 % (42.0-52.0); HEMOGLOBIN 16.3 g/dl (13.5-17.5); MEAN CORPUSCULAR HGB CONC 33.1 g/dl (32.0-36.5); MEAN CORPUSCULAR VOLUME 87.5 fl (80.0-96.0); PLATELET COUNT, AUTOMATED 311 10^3/uL (150-450); RED BLOOD COUNT 5.62 10^6/uL (4.30-6.10)
[2020-07-18 15:29] LABS: ACETAMINOPHEN LEVEL < 2.0 UG/ML (10.0-30.0); ALBUMIN 4.1 GM/DL (3.2-5.2); ALT/SGPT 22 U/L (12-78); BILIRUBIN,DIRECT 0.1 MG/DL (0.0-0.2); BILIRUBIN,TOTAL 0.4 MG/DL (0.2-1.0); BLOOD UREA NITROGEN 16 MG/DL (7-18); CALCIUM LEVEL 9.1 MG/DL (8.5-10.1); CARBON DIOXIDE LEVEL 22 MEQ/L (21-32); CHLORIDE LEVEL 108 MEQ/L (98-107); CREATININE FOR GFR 1.25 MG/DL (0.70-1.30); ETHYL ALCOHOL (ETHANOL) < 0.003 % (0.000-0.010); GLOMERULAR FILTRATION RATE > 60.0 (>56); GLUCOSE, FASTING 114 MG/DL (70-100); POTASSIUM SERUM 4.1 MEQ/L (3.5-5.1); SALICYLATE LEVEL < 1.7 MG/DL (5.0-30.0); SODIUM LEVEL 140 MEQ/L (136-145)
[2020-07-18 16:04] LABS: AMPHETAMINES LEVEL URINE NEGATIVE (NEGATIVE); BARBITURATES URINE NEGATIVE (NEGATIVE); BENZODIAZEPINES URINE NEGATIVE (NEGATIVE); CANNABINOIDS URINE NEGATIVE (NEGATIVE); COCAINE METABOLITE URINE NEGATIVE (NEGATIVE); METHADONE URINE NEGATIVE (NEGATIVE); OPIATES URINE NEGATIVE (NEGATIVE); PHENCYCLIDINE URINE NEGATIVE (NEGATIVE)
[2020-07-18] MEDS ORDERED: CitaloPRAM (CeleXA) 10 MG TABLET PO ONE (21:00)
[2020-07-18] MEDS ORDERED: risperiDONE 3 MG TAB PO ONE (21:00)
[2020-07-19] MEDS ORDERED: TRAZ-252 PO (02:09)
[2020-07-19] MEDS ORDERED: RISP-7 PO (02:09)
[2020-07-19] MEDS ORDERED: HYDR1CAP25 PO (02:09)
[2020-07-19] MEDS ORDERED: CITA10TA5 PO (02:09)
[2020-07-19 18:30] LABS: RSV AMPLIFICATION NEGATIVE (NEGATIVE)
--- NOTE | 2020-07-19 19:51 | ECGEPIP ---
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
[2020-07-20] MEDS ORDERED: hydrOXYzine 25 MG TAB PO PRN (07:45)
[2020-07-20] MEDS: risperiDONE 0.5 MG TAB PO SCH (08:28)
[2020-07-20] MEDS: CitaloPRAM (CeleXA) 10 MG TABLET PO SCH (08:28)
[2020-07-20] MEDS ORDERED: traZODone 50 MG TAB PO PRN (12:10)
[2020-07-20] MEDS ORDERED: MAALOX 30 ML SUSP *UDC PO PRN (12:10)
[2020-07-20] MEDS ORDERED: ACETAMINOPHEN TAB 650MG DOSE (2X325MG) PO PRN (12:10)
[2020-07-20] MEDS ORDERED: MOM 30ML SUSPENSION UDC PO PRN (12:10)
[2020-07-20 14:13] VITALS: BP 153/84
[2020-07-20] MEDS ORDERED: traZODone 50 MG TAB PO SCH (21:00)
[2020-07-21 06:55] VITALS: BP 138/71
[2020-07-21] MEDS: CitaloPRAM (CeleXA) 10 MG TABLET PO SCH (08:56)
[2020-07-21] MEDS: risperiDONE 0.5 MG TAB PO SCH (08:56)
--- NOTE | 2020-07-21 10:09 | HPEPDOC ---
[facility] Medical History & Physical Date of Admission Jul 20, 2020 Date of Service: Jul 21, 2020 History and Physical Hospitalist history and physical examination dictated job #[id number] If H and P is needed urgently, please call [employer] at [phone] to stat transcribed Vital Signs Vital Signs Date Time Temp Pulse Resp B/P (MAP) Pulse Ox O2 Delivery O2 Flow Rate FiO2 07/21/20 06:55 97.9 64 20 138/71 (93) 95 Room Air Home Medications Scheduled Citalopram Hydrobromide (Citalopram HBr) 10 Mg Tablet, 10 MG PO DAILY Risperidone (Risperidone) 0.5 Mg Tablet, 0.5 MG PO DAILY Trazodone HCl (Trazodone HCl) 50 Mg Tablet, 50 MG PO QHS Scheduled PRN Hydroxyzine Pamoate (Hydroxyzine Pamoate) 25 Mg Capsule, 25 MG PO TID PRN for ANXIETY Allergies Coded Allergies: No Known Allergies (Unverified , 03/23/19) A-FIB/CHADSVASC A-FIB History Current/History of A-Fib/PAF?: No (they can do that them so Sunday to the monoclonal antibody. The physician noted that the consent form okay yeah she is going to go is okay alright.) Current PO Anticoag Therapy: No Age/Risk Factor Scoring CHADSVASC: CHADSVASC Response (Comments) Value Age Risk Factor Age < 65 years old 0 Gender Risk Factor Male 0 Hx of CHF No 0 Hx of HTN No 0 Hx of Stroke/TIA/or VTE No 0 Hx of Diabetes No 0 Hx of Vascular Disease No 0 Total 0 Treatment Treatment ordered: NONE JACKLYN ESPINOZA MD Jul 21, 2020 10:09
--- NOTE | 2020-07-21 11:10 | HPE ---
HISTORY AND PHYSICAL DATE OF ADMISSION: 07/20/2020 CHIEF COMPLAINT: Routine medical exam for admitted psychiatric patient. HISTORY OF PRESENT ILLNESS: A 60-year-old male with a history of auditory hallucinations, depression, suicidal thoughts, situational anxiety, stressor anxiety, restlessness, asthma, admitted to the inpatient Mental Health Unit due to severe depression with paranoia. Hospitalist asked to see the patient for medical examination. He denies any fever, chills, chest pain, pressure, tightness, or lightheadedness, changes in weight, appetite, nausea, vomiting, diarrhea, abdominal pain, dysuria, urgency, frequency, polyphagia, polydipsia, polyuria, weight gain, weight loss, changes in sleep habits. He denies any cough or unusual skin rash, lymphadenopathy or masses, bright-red blood per rectum, melena, or black tarry stools. He denies any arthritic pain of the joints or muscle aches. He admits to depressive symptoms, psychosis, hallucinations and paranoia. All other 10 point review of systems negative. PAST MEDICAL HISTORY: Asthma, depression, auditory hallucinations, delusions, paranoia, psychosis, situational anxiety, stressor related anxiety. PAST SURGICAL HISTORY: Rectal polypectomy, colonoscopy at the age of 3. ALLERGIES: No known drug allergies. HOSPITAL MEDICATIONS: 1. Trazodone. 2. Acetaminophen. 3. Mag-Oxide. 4. Mylanta. 5. Celexa. 6. Risperdal. 7. Atarax. SOCIAL HISTORY: Denies alcohol, cigarette or recreational drug use. Works at [employer]. Patient quit drinking 19 1/2 years ago. FAMILY HISTORY: Father age 75 with hypertension, mother age 77, unknown medical problems. REVIEW OF SYSTEMS: Per HPI. Ten point system otherwise negative. PHYSICAL EXAMINATION: Temperature is 97.9, pulse is 64, respiratory rate is 20, blood pressure is 138/71, 95% on room air. In general, alert, awake and oriented to person, place and time answering questions appropriately. Lungs are clear to auscultation. No wheezing, rales or rhonchi. Heart is S1 and S2 sinus rhythm. Abdomen is obese, soft, nontender and nondistended. Extremities: No cyanosis, clubbing or pitting edema. LABORATORY DATA: On 07/18/2020: CBC: Metabolic panel has been reviewed. ASSESSMENT AND PLAN: A 60-year-old with depression with psychosis, hallucinations and paranoia, anxiety disorder, asthma, with no acute medical complaints. 1. Asthma, controlled. Patient has not had any exacerbations, does not need maintenance therapy, as needed Albuterol. 2. Depression/anxiety/paranoia. Psychiatric management. Please re-consult and call [facility] for any new active medical issues. Edited: tere 07/22/2020 [id number] [email or web address]
--- NOTE | 2020-07-21 12:49 | MHHPE ---
[facility] HISTORY AND PHYSICAL DATE OF ADMISSION: 07/20/2020 IDENTIFYING DATA: He is a 60-year-old male, single, living with his stepfather and mother. Was admitted because of bizarre behavior. HISTORY OF PRESENT ILLNESS: Patient was brought to the emergency department by [facility]. Reportedly patient stopped his medications and behaving aggressively toward his mother and stepfather, walking around late the in night with inappropriate laughter, loss of interest, and exhibiting some aggression. During my evaluation with the patient, patient reports he stopped the medications because he was doing well. Denies being aggressive toward his stepfather; however, he has some interpersonal relationship problems with his stepfather. Patient has history of mental illness. Has been diagnosed with schizophrenia. He was admitted to [facility] in 2018. He was prescribed risperidone, but he stopped taking it about 4 months ago. Complains of some auditory hallucinations, anxiety, and reports that he speaks to himself sometimes. Patient is somewhat guarded. He thinks that people can control his mind and he can control others, but he was ambivalent to accept the bizarre delusions, made poor eye contact. PAST PSYCHIATRIC HISTORY: Patient was on 3 mg of risperidone 2 years back when he was admitted here. No other previous psychiatric hospitalization. SUICIDAL HISTORY: Denies any suicide attempt but reports that once in the past he wanted to run in front of a truck in traffic. DRUG/ALCOHOL: Reports that he used to drink alcohol in the past, but for the past 19 years he has been sober. MEDICAL HISTORY: Denies medical problems. FAMILY HISTORY: Reports his younger brother has a psychiatric illness but is not sure as to what he is suffering from. PERSONAL HISTORY: He was born in [place], [place]. Raised in [place]. Completed high school graduation. 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 Currently he is unemployed, though recently he worked at [employer]. MENTAL STATUS EXAMINATION: Casually dressed, cooperative. Made intermittent eye contact. Mood is anxious and depressed. Affect is somewhat anxious and blunted. Thought process goal directed. Thought content: Denied any suicidal or homicidal ideas; however, he was preoccupied. He accepted that he has auditory hallucinations. Probably he was responding to internal stimuli also. Insight and judgment are poor. He is alert and oriented to time, place, and person. VITAL SIGNS: Temperature 97.9, pulse 64, respiratory rate 20, blood pressure 138/71, pulse oximetry 95. LABORATORY DATA: CBC within normal limits, though WBC was slightly elevated. CMP within normal limits. Toxicology was negative. DIAGNOSES: Schizophrenia spectrum disorder. REVIEW OF SYSTEMS: CONSTITUTIONAL: Negative for night sweats and weight loss. HEENT: Negative for epistaxis and headache. RESPIRATORY: There is no cough, no shortness of breath. CARDIOVASCULAR: Negative for chest pain or dyspnea. GASTROINTESTINAL: No abdominal pain. No change in bowel habits. GENITOURINARY: No dysuria, no trouble voiding. MUSCULOSKELETAL: Negative for gait disturbances. NEUROLOGIC: Negative for tingling, numbness. PLAN: Admit to inpatient unit. He will be seen by gas regulator repairer for medical needs. Patient will be seen by occupational therapy (OT) and aids social worker. Patient will be placed on appropriate precautions. He will participate in group and activities. He will also receive individual and milieu therapy. MEDICATIONS: I will increase his risperidone to 1 mg at night. Continue trazodone every night as needed for insomnia. ESTIMATED LENGTH OF STAY: 4-5 days. TIME SPENT ON THE PATIENT: 1 hour.
[2020-07-21 16:32] VITALS: BP 144/70
[2020-07-22 06:42] VITALS: BP 173/94
[2020-07-22 07:33] VITALS: BP 178/74
[2020-07-22] MEDS: risperiDONE 0.5 MG TAB PO SCH (08:27)
[2020-07-22] MEDS: CitaloPRAM (CeleXA) 10 MG TABLET PO SCH (08:27)
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
[2020-07-22 10:30] VITALS: BP 144/76
[2020-07-22 16:19] VITALS: BP 144/67
[2020-07-23 06:00] VITALS: BP 152/68
[2020-07-23] MEDS: risperiDONE 1 MG TAB PO SCH (08:55)
[2020-07-23] MEDS: CitaloPRAM (CeleXA) 10 MG TABLET PO SCH (08:55)
[2020-07-23 16:18] VITALS: BP 140/70
[2020-07-24] MEDS: CitaloPRAM (CeleXA) 10 MG TABLET PO SCH (08:27)
[2020-07-24] MEDS: risperiDONE 1 MG TAB PO SCH (08:27)
[2020-07-24 16:25] VITALS: BP 138/67
[2020-07-25 06:29] VITALS: BP 159/76
[2020-07-25] MEDS: CitaloPRAM (CeleXA) 10 MG TABLET PO SCH (08:33)
--- NOTE | 2020-07-25 09:28 | MHIPN ---
[facility] PROGRESS NOTE DATE: 07/24/2020 This is a video assessment. VITAL SIGNS: Blood pressure 138/67, pulse 76, temperature 97.6. CHIEF COMPLAINT: Says feels okay. SUBJECTIVE: Seen for followup, and he is seen in the presence of staff. He says he feels better, though a bit vague on this, says feels a bit more rested, less anxious. Says sleep was okay, appetite was good. Says he last heard voices possibly yesterday, and denies any command hallucinations. He says has had no panic attacks. MENTAL STATUS EXAMINATION: He is neat, cooperative, no agitation, no psychomotor retardation. He answers questions logically, coherently, briefly. Affect is reactive. Denies suicidal thoughts or intents. No homicidal ideas or intents. At present does not appear to be internally preoccupied. Cognition grossly intact. Judgment and insight remain compromised. ASSESSMENT: Schizophrenia. PLAN: Continue risperidone at the current dose, 1 mg at night, and this may need an upward titration. Continue encouraging the patient to participate in activities in the unit.
[2020-07-25] MEDS: risperiDONE 1 MG TAB PO SCH (09:29)
[2020-07-25 16:35] VITALS: BP 114/59
[2020-07-26 06:00] VITALS: BP 140/78
[2020-07-26] MEDS: CitaloPRAM (CeleXA) 10 MG TABLET PO SCH (08:22)
[2020-07-26] MEDS: risperiDONE 1 MG TAB PO SCH (08:22)
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
[2020-07-26 19:08] VITALS: BP 138/78
[2020-07-27 07:12] VITALS: BP 142/71
[2020-07-27] MEDS: CitaloPRAM (CeleXA) 10 MG TABLET PO SCH (08:12)
[2020-07-27] MEDS: risperiDONE 1 MG TAB PO SCH (08:12)
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
[2020-07-27 18:12] VITALS: BP 140/86
[2020-07-28 06:00] VITALS: BP 154/76
[2020-07-28] MEDS: risperiDONE 1 MG TAB PO SCH (08:08)
[2020-07-28] MEDS: CitaloPRAM (CeleXA) 10 MG TABLET PO SCH (08:08)
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
[2020-07-28 18:07] VITALS: BP 153/73
[2020-07-29 06:37] VITALS: BP 143/73
[2020-07-29] MEDS ORDERED: CELE10TA PO (08:35)
[2020-07-29] MEDS ORDERED: RISP-8 PO (08:35)
[2020-07-29] MEDS: CitaloPRAM (CeleXA) 10 MG TABLET PO SCH (08:49)
[2020-07-29] MEDS: risperiDONE 1 MG TAB PO SCH (08:49)
--- NOTE | 2020-07-29 12:41 | MHDS ---
DISCHARGE SUMMARY DATE OF ADMISSION: 07/20/2020 DATE OF DISCHARGE: 07/29/2020 DIAGNOSIS: Schizophrenia, paranoid type. IDENTIFYING DATA: He is a 60-year-old male, single, living with his stepfather and mother who was admitted because of bizarre psychotic behavior. For HPI, past psychiatric history, past medical history, please refer to the initial evaluation. COURSE IN THE HOSPITAL: The patient was initially brought because he was exhibiting some aggressive behavior, inappropriate laughter at home. The patient stopped taking his medications. He was placed on Risperidone which was slowly titrated upwards. He also received individual, group, and milieu therapy. The patient was attending activities. The patient slowly started improving. His hallucinations became less. His delusions of thought control persisted for awhile but in the end he denied delusions of thought control. He slept better, started attending groups, interacted well with peers and staff. He denied any side effects from the medications, denied suicidal or homicidal ideas. He was stable at the time of discharge. His mother was contacted. He agreed to go to the followup appointments as recommended by the team after consulting his mother. MENTAL STATUS EXAMINATION: Casually dressed with clean clothes, cooperative. Made good eye contact. Mood is euthymic. Affect is slightly blunted. Thought process is linear and goal directed. Denied any suicidal or homicidal ideas. Denied auditory and visual hallucinations. Insight and judgment are fair to limited. Memory, immediate, remote, recent are good. VITAL SIGNS: Temperature of 97.7, pulse is 64, respiratory rate is 18, blood pressure 143/73, pulse oximetry 99. LABORATORY DATA: CBC within normal limits. CMP within normal limits. Toxicology was negative. DISCHARGE MEDICATIONS: 1. Risperidone 2 mg at night. 2. Citalopram 10 mg every morning. DISCHARGE PLAN: He will go home. Follow up at [facility]. Time spent on the patient is less than 30 minutes.
== END 2020-07-29 12:43 | disposition home or self-care (01) | DRG 750 ==
LOC: M ED 14:09 → M ED INP 07-20 12:10 → M PSY 07-20 13:15
PROVIDERS: ADMIT Psychiatry & Neurology Psychiatry; ATTEND Psychiatry & Neurology Psychiatry
DX: F20.0 Paranoid schizophrenia (principal); J45.909 Unspecified asthma, uncomplicated; Z79.899 Other long term (current) drug therapy; Z91.14 Patient's other noncompliance with medication regimen